=== PATIENT | male | born 1965 | race Caucasian/White ===

== ENCOUNTER 2024-10-31 13:50 | Emergency (ER) | payer OTHER, SELFPAY ==
[2024-10-31 13:57] VITALS: BP 200/85; PULSE 123; RESP 15; O2SAT 99; BMI 33.3
--- NOTE | 2024-10-31 14:07 | CT_ITS ---
WS: [id number] CT HEAD NONCONTRAST HISTORY: STROKE SYMPTOMS TECHNIQUE: Contiguous axial imaging performed through the brain. Bone and soft tissue windows. Sagittal and coronal reformats reviewed. All CT scans at [facility] use at least one of these dose optimization techniques: automated exposure control; mA and/or kV adjustment per patient size (includes targeted exams where dose is matched to clinical indication); or iterative reconstruction. DLP: 1125.09 mGy COMPARISON: None available. No acute intracranial hemorrhage, midline shift or mass effect. Mild atrophy and mild small vessel disease. No prior infarct. Ventricles: Normal size with no hydrocephalus. Paranasal sinuses: As visualized are clear. Mastoid air cells: Well pneumatized. Calvarium and scalp: Skull is intact with no soft tissue edema or swelling. CT/CT head thrombolytic 11557 IMPRESSION: 1. No acute intracranial hemorrhage or edema. 2. Mild cerebral atrophy and small vessel disease. Notified Brent Patterson DO at 10/31/2024 2:19 PM.
--- NOTE | 2024-10-31 14:08 | XR_ITS ---
WS: [id number] Portable AP upright chest, 10/31/2024 Clinical Data: Weakness Comparison: None. Findings: No nodules, masses or effusions are seen. The heart is normal. The pulmonary vascularity is not increased. No pneumonia or pneumothorax is seen. Monitor leads are on the chest wall. XR/XR chest 1V portable [id number] Impression: Negative chest.
--- NOTE | 2024-10-31 14:09 | W.ED.NEUROSD ---
HPI - Neuro Symptoms/Deficit General: Chief Complaint: Neuro Symptoms/Deficit Stated Complaint: AMS Time Seen by Provider: 10/31/24 14:07 History of Present Illness: 59-year-old man with a history of hypertension and obesity who presents to the emergency room with altered mental status and concern for stroke. He had some gait issues, was a bit unsteady on his feet but not in any 1 direction. His speech was a bit difficult initially. Also friends say his short-term memory was off that he would do something and forget he had done it. Last known well time is unknown. Friends [place] up at [place] 9[place] Is unclear what time he started or when his last known well time was but obviously this morning sometime. Apparently he took at 20 mg THC gummy which he has not taken anytime recently and was drinking some alcohol. On presentation here his hypertensive and tachycardic. He has no focal motor deficits. No slurred speech. He is alert and oriented. Related Data Home Medications ?Medication ?Instructions ?Recorded ?Confirmed lisinopril 20 mg tablet 20 mg PO DAILY 10/31/24 10/31/24 sildenafil 50 mg tablet 50 - 100 mg PO PRN PRN Sexual 10/31/24 10/31/24 Activity testosterone 4 pump topical DAILY 10/31/24 10/31/24 Allergies Allergy/AdvReac Type Severity Reaction Status Date / Time Penicillins Allergy Unknown Verified 10/31/24 14:31 Review of Systems Narrative: Constitutional symptoms: Negative except as documented in HPI. Skin symptoms: Negative except as documented in HPI. Eye symptoms: Negative except as documented in HPI. ENMT symptoms: Negative except as documented in HPI. Respiratory symptoms: Negative except as documented in HPI. Cardiovascular symptoms: Negative except as documented in HPI. Gastrointestinal symptoms: Negative except as documented in HPI. Genitourinary symptoms: Negative except as documented in HPI. Musculoskeletal symptoms: Negative except as documented in HPI. Neurologic symptoms: Negative except as documented in HPI. Psychiatric symptoms: Negative except as documented in HPI. Endocrine symptoms: Negative except as documented in HPI. Physical Exam Narrative: EXAM NARRATIVE: General: Alert, no acute distress. Skin: Warm, dry. Head: Normocephalic, atraumatic. Neck: Supple, trachea midline. Eye: Extraocular movements are intact. Ears, nose, mouth and throat: mucosa moist. Cardiovascular: Regular, Normal peripheral perfusion. Respiratory: Lungs are clear to auscultation, respirations are non-labored, breath sounds are equal, Symmetrical chest wall expansion. Gastrointestinal: Soft, Nontender, Non distended Musculoskeletal: Normal ROM, no deformity. Neurological: Alert and oriented, No focal neurological deficit observed. Patient is a bit shaky on his feet but no obvious gait abnormalities. No visual deficits. No facial droop. No slurred speech. Psychiatric: Cooperative, appropriate mood & affect. Course Vital Signs: Vital signs: Vital Signs Pulse Rate 123 H 10/31/24 13:57 Respiratory Rate 15 10/31/24 13:57 Blood Pressure 200/85 10/31/24 13:57 Pulse Oximetry 99 10/31/24 13:57 Oxygen Delivery Me thod Room Air 10/31/24 13:57 MDM - Neuro Symptoms/Deficit Medical Decision Making Medical decision making: Differential diagnosis for patient with focal neurologic deficit(s) includes but not limited to and based on the above HPI, review of systems and physical exam: ischemic stroke, hemorrhagic stroke and embolic stroke secondary to atrial fibrillation), TIA, Hammer's palsey, metabolic encephalopathy with previous stroke. Orders placed to evaluate differential diagnosis based on the above differential, HPI and physical exam NIH Stroke Scale/Score (NIHSS) from [email or web address] on 10/31/2024 All calculations should be rechecked by clinician prior to use RESULT SUMMARY: 0 points NIH Stroke Scale INPUTS: 1A: Level of consciousness ?> 0 = Alert; keenly responsive 1B: Ask month and age ?> 0 = Both questions right 1C: 'Blink eyes' & 'squeeze hands' ?> 0 = Performs both tasks 2: Horizontal extraocular movements ?> 0 = Normal 3: Visual soler ?> 0 = No visual loss 4: Facial palsy ?> 0 = Normal symmetry 5A: Left arm motor drift ?> 0 = No drift for 10 seconds 5B: Right arm motor drift ?> 0 = No drift for 10 seconds 6A: Left leg motor drift ?> 0 = No drift for 5 seconds 6B: Right leg motor drift ?> 0 = No drift for 5 seconds 7: Limb Ataxia ?> 0 = No ataxia 8: Sensation ?> 0 = Normal; no sensory loss 9: Language/aphasia ?> 0 = Normal; no aphasia 10: Dysarthria ?> 0 = Normal 11: Extinction/inattention ?> 0 = No abnormality EKG: Time 1414. Rate 116. Sinus tachycardia, No ST-T changes, no ectopy, normal CA & QRS intervals, This was reviewed and interpreted by myself the ER physician at 1418. CT head: No acute intracranial process. no intracranial hemorrhage, no evidence of infarct. no evidence of acute fracture.This was reviewed and interpreted by myself the ER physician. Chest x-ray: No acute process. No infiltrate. No pneumothorax. This was reviewed and interpreted by myself the emergency room physician. I also reviewed the radiology report. Lab Review: Laboratory results were reviewed and interpreted by myself the emergency room physician. No leukocytosis. No anemia. Mild renal insufficiency. No comparison lab work. Urinalysis is negative for infection. Drug screen is positive for marijuana which was expected. I reviewed the patient's medical record. Reexamination: Patient has improved tremendously with time and fluids. He is back to his baseline according to friends. No increased work of breathing. No altered mental status. No focal motor deficits. We discussed that this may be likely related to the heat in combination with some alcohol and unfamiliar use of marijuana edibles. He agrees. Blood pressure has come down as his agitation is improved. Also his heart rate is improved as well. Assessment and plan: Dehydration Metabolic encephalopathy Tachycardia ? Normal saline bolus in the emergency room. Patient has resolved - Discharged home - Discussed plan with patient. Answered any questions. - Evaluation and treatment of this problem were appropriate in the emergency setting. Lab Data 10/31/24 14:17 10/31/24 14:[address] 10/31/24 14:07 IMPRESSION: 1. No acute intracranial hemorrhage or edema. 2. Mild cerebral atrophy and small vessel disease. Notified Brent Patterson DO at 10/31/2024 2:19 PM. Chest X-Ray 10/31/24 14:08 Impression: Negative chest. Laboratory Results WBC 8.46 10^3/uL (3.29-11.43) 10/31/24 14:17 RBC 6.00 10^6/uL (3.85-5.65) H 10/31/24 14:17 Hgb 16.90 g/dL (11.27-16.99) 10/31/24 14:17 Hct 51.1 % (37-53) 10/31/24 14:17 MCV 85.2 fl (82-101) 10/31/24 14:17 MCH 28.2 pg (27-33) 10/31/24 14:17 MCHC 33.1 g/dL (30-55) 10/31/24 14:17 RDW 12.6 % (12.1-15.1) 10/31/24 14:17 Plt Count 280 10^3/cmm (157-399) 10/31/24 14:17 MPV 10.4 fL (7.4-10.4) 10/31/24 14:17 Neut % (Auto) 71.3 % 10/31/24 14:17 Lymph % (Auto) 21.0 % 10/31/24 14:17 [place] % (Auto) 5.1 % 10/31/24 14:17 Eos % (Auto) 2.0 % 10/31/24 14:17 Baso % (Auto) 0.4 % 10/31/24 14:17 Neut # (Auto) 6.03 10^3/uL (1.8-7.7) 10/31/24 14:17 Lymph # (Auto) 1.8 10^3/uL (0.8-4.8) 10/31/24 14:17 [place] # (Auto) 0.4 10^3/uL (0.2-0.9) 10/31/24 14:17 Eos # (Auto) 0.2 10^3/uL (0.0-0.8) 10/31/24 14:17 Baso # (Auto) 0.0 10^3/uL (0.0-0.1) 10/31/24 14:17 Nucleated RBC % (auto) 0 % 10/31/24 14:17 Nucleated RBCs # 0.0 /100WBC 10/31/24 14:17 Sodium 139 mmol/L (136-145) 10/31/24 14:17 Potassium 3.6 mmol/L (3.5-5.1) 10/31/24 14:17 Chloride 98 mmol/L (98-107) 10/31/24 14:17 Carbon Dioxide 24 mmol/L (22-29) 10/31/24 14:17 Anion Gap 20.6 (5-19) H 10/31/24 14:17 BUN 16 mg/dL (8-23) 10/31/24 14:17 Creatinine 1.4 mg/dL (0.7-1.2) H 10/31/24 14:17 GFR Calculation 51.7 mL/min (90-130) L 10/31/24 14:17 Glucose 129 mg/dL (65-115) H 10/31/24 14:17 POC Glucose 130 mg/dL (70-110) H 10/31/24 14:05 Calculated Osmolality 291 mOsm/kg (285-295) 10/31/24 14:17 Lactic Acid 4.4 mmol/L (0.5-2.2) H* 10/31/24 14:17 Calcium 9.6 mg/dL (8.5-10.5) 10/31/24 14:17 Total Bilirubin 0.5 mg/dL (0.15-1.2) 10/31/24 14:17 AST 22 U/L (0-40) 10/31/24 14:17 ALT 26 U/L (0-41) 10/31/24 14:17 Alkaline Phosphatase 58 U/L (40-130) 10/31/24 14:17 Creatine Kinase 208 U/L (39-308) 10/31/24 14:17 Troponin T Baseline 8 ng/L (0-15) 10/31/24 14:17 C-Reactive Protein 3.0 mg/L (0.0-4.9) 10/31/24 14:17 Total Protein 7.5 g/dL (6.6-8.7) 10/31/24 14:17 Albumin 4.9 g/dL (3.5-5.2) 10/31/24 14:17 Globulin 2.6 g/dL (1.3-4.6) 10/31/24 14:17 Urine Color Yellow (Yellow) 10/31/24 14:57 Urine Appearance Clear (CLEAR) 10/31/24 14:57 Urine pH 5.0 (5-7) 10/31/24 14:57 Ur Specific [place] 1.016 (1.005-1.030) 10/31/24 14:57 Urine Protein Negative (Negative) 10/31/24 14:57 Urine Glucose (UA) Negative (Normal) 10/31/24 14:57 Urine Ketones Negative (Negative) 10/31/24 14:57 Urine Blood Negative (Negative) 10/31/24 14:57 Urine Nitrate Negative (Negative) 10/31/24 14:57 Urine Bilirubin Negative (Negative) 10/31/24 14:57 Urine Urobilinogen 0.2 mg/dL (Negative) 10/31/24 14:57 Ur Leukocyte Esterase Negative (Negative) 10/31/24 14:57 Urine RBC 0-2 /hpf (0-2) 10/31/24 14:57 Urine WBC 0-5 /hpf (0-5) 10/31/24 14:57 Ur Squamous Epith Cells 0-5 /hpf (0-5) 10/31/24 14:57 Amorphous Sediment Not Reportable 10/31/24 14:57 Urine Bacteria None seen /hpf (NONE) 10/31/24 14:57 Hyaline Casts 4.95 /lpf 10/31/24 14:57 Urine Opiates Screen Negative ng/mL (Negative) 10/31/24 14:57 Acetaminophen < 5.0 ug/mL (10-30) L 10/31/24 14:17 Ur Barbiturates Screen Negative ng/mL (Negative) 10/31/24 14:57 Ur Phencyclidine Scrn Negative ng/mL (Negative) 10/31/24 14:57 Ur Amphetamines Screen Negative ng/mL (Negative) 10/31/24 14:57 U Benzodiazepines Scrn Negative ng/mL (Negative) 10/31/24 14:57 Urine Cocaine Screen Negative ng/mL (Negative) 10/31/24 14:57 U Marijuana (THC) Screen Positive ng/mL (Negative) H 10/31/24 14:57 Ethyl Alcohol 25 mg/dL (0-10) H 10/31/24 14:17 All radiology interpretation(s) finalized by discharge Discharge Plan Discharge Patient Disposition: Home Clinical Impression: Acute metabolic encephalopathy, Dehydration, Hypertension Condition: Stable Prescriptions: No Action sildenafil 50 mg tablet 50 - 100 mg PO PRN PRN (Reason: Sexual Activity) lisinopril 20 mg tablet 20 mg PO DAILY testosterone 20.25 mg/1.25 gram (1.62 %) gel in metered-dose pump 4 pump topical DAILY Discharge Orders: Discharge ED (Routine); Ordered 10/31/24 Ordered By: Stefany Alvarez Discharge Diet: Usual diet Discharge Activity: Increase activity as tolerated Patient Instructions: Opioid Safety, Pain Management Activity Restrictions/Additional Instructions: Thank you for choosing [facility] healthcare needs today. Please realize this is an emergency room and that we are providing you with a medical screening exam and this may not be complete and all inclusive of all the testing and or work up that you may need to determine your ailment or severity of your illness. You have been screened and evaluated and felt safe for discharge. Health conditions do change or evolve sometimes and as such it is important that you follow up with your Primary Doctor to be re checked, 3-5 days is a general good time frame for follow up. You are always welcome to return to the ED for re assessment if your symptoms are worsening or you have new concerns Print Language: Angolan Coding Level of Care Code ED Pbx Repairer for [address]
[2024-10-31 14:10] LABS: Glucose Point of Care 130 mg/dL (70-110)
--- NOTE | 2024-10-31 14:14 | ECG_ITS ---
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 Measurements Intervals [place] Rate: 116 P: 150 HI: 192 QRS: 145 QRSD: 117 T: 148 QT: 306 QTc: 427 Interpretive Statements ECTOPIC ATRIAL TACHYCARDIA POSSIBLE LEFT ATRIAL ENLARGEMENT [-0.1mV P-WAVE IN V1/V2] POSSIBLE RIGHT VENTRICULAR HYPERTROPHY [SOME/ALL OF: PROMINENT R IN V1, LATE TRANSITION, RAD, FLAVIO, SSS] No previous ECG available for comparison Electronically Signed On 11-01-2024 08:44:29 CDT by Manjinder Gomez M.D. [email or web address]
[2024-10-31 14:28] LABS: Basophils % 0.4 %; Eosinophils # 0.2 10^3/uL (0.0-0.8); Hematocrit 51.1 % (37-53); Lymphocytes # 1.8 10^3/uL (0.8-4.8); Mean Corpuscular HGB Conc 33.1 g/dL (30-55); Mean Corpuscular Hemoglobin 28.2 pg (27-33); Mean Corpuscular Volume 85.2 fl (82-101); Mean Platelet Volume 10.4 fL (7.4-10.4); Monocytes # 0.4 10^3/uL (0.2-0.9); Monocytes % 5.1 %; Neutrophils # 6.03 10^3/uL (1.8-7.7); Neutrophils % 71.3 %; Nucleated Red Blood Cells % 0 %; Platelet Count 280 10^3/cmm (157-399); Red Cell Distribution Width 12.6 % (12.1-15.1); White Blood Count 8.46 10^3/uL (3.29-11.43)
--- NOTE | 2024-10-31 14:36 | PC.PHAR ---
patient states his primary pharmacy is [facility] in [place] [address].. phone # [phone] however i cannot locate it on our patient pharmacy location it wont pull up even after trying multiple ways. it pulls up after i google it. i just cant add it in
[2024-10-31 14:43] LABS: Alanine Aminotransferase 26 U/L (0-41); Albumin Level 4.9 g/dL (3.5-5.2); Alcohol Level 25 mg/dL (0-10); Alkaline Phosphatase 58 U/L (40-130); Anion Gap 20.6 (5-19); Aspartate Amino Transferase 22 U/L (0-40); Blood Urea Nitrogen 16 mg/dL (8-23); Calcium 9.6 mg/dL (8.5-10.5); Carbon Dioxide 24 mmol/L (22-29); Chloride 98 mmol/L (98-107); Creatine Phosphokinase 208 U/L (39-308); Creatinine Clr Calc Pharmacy 66.2102; Globulin 2.6 g/dL (1.3-4.6); Glomerular Filtration Rate 51.7 mL/min (90-130); Glucose 129 mg/dL (65-115); Osmolality Calculated 291 mOsm/kg (285-295); Potassium 3.6 mmol/L (3.5-5.1); Sodium 139 mmol/L (136-145); Total Bilirubin 0.5 mg/dL (0.15-1.2); Total Protein 7.5 g/dL (6.6-8.7)
[2024-10-31 14:44] LABS: Troponin(5th) Baseline 8 ng/L (0-15)
[2024-10-31 14:45] LABS: Acetaminophen < 5.0 ug/mL (10-30)
[2024-10-31 14:49] LABS: Lactic Sepsis W/Reflex 4.4 mmol/L (0.5-2.2)
[2024-10-31 15:00] VITALS: BP 180/100; PULSE 95; O2SAT 95
[2024-10-31] MEDS: sodium chloride 0.9% 1,000 ML 999 ML IV (15:00)
[2024-10-31 15:07] LABS: Bilirubin Urine Negative (Negative); Blood Urine Negative (Negative); Glucose Urine UA Negative (Normal); Ketones Urine Negative (Negative); Leukocyte Esterase Urine Negative (Negative); Nitrate Urine Negative (Negative); Protein Urine Negative (Negative); Specific Gravity, Urine 1.016 (1.005-1.030); Urine Appearance Clear (CLEAR); Urine Color Yellow (Yellow); Urobilinogen Urine 0.2 mg/dL (Negative)
[2024-10-31 15:09] LABS: Bacteria Urine None Seen /hpf; Hyaline Casts Urine 4.95 /lpf; RBC Urine 0-2 /hpf (0-2); Squamous Epithelial Cell Urine 0-5 /hpf (0-5); WBC Urine 0-5 /hpf (0-5)
[2024-10-31 15:12] LABS: Add Urine Culture? No
[2024-10-31 15:14] LABS: Amphetamines Screen Urine Negative (Negative); Barbiturates Screen Urine Negative (Negative); Benzodiazepines Screen Urine Negative (Negative); Cocaine Screen Urine Negative (Negative); Opiate Screen Urine Negative (Negative); PCP Screen Urine Negative (Negative); THC Screen Urine Positive (Negative)
[2024-10-31 15:45] VITALS: BP 170/104; PULSE 95; RESP 18; O2SAT 95
[2024-10-31 16:09] LABS: Reflex Lactate Order REFLEX LACTIC ORDERD
--- NOTE | 2024-10-31 16:09 | ECG_ITS ---
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 Measurements Intervals [place] Rate: 83 P: 153 ND: 173 QRS: 145 QRSD: 122 T: 34 QT: 342 QTc: 402 Interpretive Statements ECTOPIC ATRIAL RHYTHM POSSIBLE RIGHT VENTRICULAR HYPERTROPHY [SOME/ALL OF: PROMINENT R IN V1, LATE TRANSITION, RAD, FLAVIO, SSS] INFERIOR MYOCARDIAL INFARCTION , PROBABLY OLD [40+ ms Q WAVE AND/OR ST/T ABNORMALITY IN II/aVF] Compared to ECG 10/31/2024 14:14:03 Ectopic atrial rhythm now present Myocardial infarct finding now present Electronically Signed On 11-01-2024 08:58:27 CDT by Manjinder Gomez M.D. [email or web address]
[2024-10-31 16:22] LABS: Troponin 5 2HR 8.44 ng/L (0-15); Troponin 5 2HR Delta 0.44 ABS# (0-10)
[2024-10-31 16:36] VITALS: BP 149/82; PULSE 92; RESP 18; O2SAT 96
== END 2024-10-31 16:42 | disposition home or self-care (01) ==
PROVIDERS: Emergency Provider Emergency Medicine
DX: G93.41 Metabolic encephalopathy (principal); E86.0 Dehydration; I10 Essential (primary) hypertension
CPT/HCPCS: 36415; 36416; 70450; 71045; 80053; 80306; 80307; 81001; 82550; 82962; 83605; 84484; 85025; 86140; 93005; 96360; 96361; 99285; J7030